=== PATIENT | female | born 1940 | race Caucasian/White ===

== ENCOUNTER 2017-01-20 17:43 | Inpatient (IN) | payer MEDICARE ==
[2017-01-20] MEDS ORDERED: Pantoprazole IV* 40 MG IV ONE (18:43)
[2017-01-20] MEDS ORDERED: Pantoprazole IV* 80 MG in NS 0.9% 250 ML* 250 ML IVPB SCH (19:00)
--- NOTE | 2017-01-20 19:03 | RAD ---
INDICATION: Sepsis. COMPARISON: Comparison is made with a prior chest x-ray study from January 16, 2017. Correlation is also made with an exam from August 28, 2012. TECHNIQUE: A portable view of the chest was obtained. FINDINGS: Cardiac and mediastinal contours appear to be within normal limits. There is peribronchial thickening and an infiltrate at the right lung base similar to the prior exam suggestive of pneumonia. IMPRESSION: RIGHT BASILAR INFILTRATE, UNCHANGED.
[2017-01-20 19:41] LABS: Hematocrit 25 % (35-47); Mean Corpuscular HGB Conc 32 g/dl (31-36); Mean Corpuscular Hemoglobin 22 pg (27-31); Mean Platelet Volume 7 um3 (7.4-10.4); Red Blood Count 3.69 10^6/ul (4.0-5.4); Red Cell Distribution Width 19 % (10.5-15)
[2017-01-20 19:42] LABS: Comments Flag Yes
[2017-01-20 19:44] LABS: Mean Corpuscular Volume 67 fL (80-97)
[2017-01-20 19:56] LABS: Albumin 3.6 g/dL (3.2-5.2); BUN/Creatinine Ratio 10.3 (8-20); EGFR African American 72.2 (>60); EGFR Non-African American 56.1 (>60); Globulin 3.3 g/dL (2-4); Total Bilirubin 0.5 mg/dL (0.2-1.0); Total Protein 6.9 g/dL (6.4-8.9)
[2017-01-20 19:59] LABS: Troponin I 0.03 ng/mL (<0.04)
[2017-01-20] MEDS ORDERED: Albuterol 2.5 MG/3 ML NEB.SOL* (0.083%) INH PRN (20:53)
[2017-01-20] MEDS ORDERED: Nicotine Inhaler* 10 MG AMP INH PRN (20:53)
[2017-01-20] MEDS ORDERED: Melatonin (NF) 3 MG TAB PO PRN (20:53)
[2017-01-20] MEDS ORDERED: Acetaminophen TAB* 325 MG PO PRN (20:53)
[2017-01-20] MEDS ORDERED: Ondansetron INJ* 2 MG/ML VIAL IV PRN (20:54)
[2017-01-20] MEDS ORDERED: Ipratropium 0.5MG/2.5ML NEB* 0.5 MG/2.5 ML NEB.SOLN INH PRN (20:57)
[2017-01-20 21:32] LABS: TSH (Thyroid Stimulating Horm) 7.25 mcIU/mL (0.34-5.60)
[2017-01-20 23:02] LABS: Ferritin 15.3 ng/mL (11-307)
[2017-01-20 23:45] LABS: Corrected Retic Count 1.4 % (0.5-1.5); Hematocrit 25 % (35-47); Hemoglobin 7.9 g/dl (12.0-16.0); Immature Retic Fraction 0.53
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
[2017-01-20 23:47] LABS: Comments Flag Yes
[2017-01-21] MEDS: NS 0.9% 1000 ML* 1,000 ML IV SCH ×2 (00:06→09:52)
[2017-01-21] MEDS: Docusate CAP* 100 MG PO SCH ×3 (00:08→20:45)
[2017-01-21] MEDS: Mirtazapine TAB* 15 MG PO SCH ×2 (00:11→20:45)
[2017-01-21] MEDS: Zolpidem TAB* 10 MG PO PRN ×2 (01:13→20:46)
[2017-01-21 05:30] LABS: Hematocrit 28 % (35-47); Hemoglobin 8.9 g/dl (12.0-16.0); Mean Corpuscular HGB Conc 32 g/dl (31-36); Mean Corpuscular Hemoglobin 23 pg (27-31); Mean Corpuscular Volume 70 fL (80-97); Mean Platelet Volume 7 um3 (7.4-10.4); Red Blood Count 3.97 10^6/ul (4.0-5.4); Red Cell Distribution Width 21 % (10.5-15); White Blood Count 8.2 10^3/ul (3.5-10.8)
[2017-01-21 05:33] LABS: Comments Flag Yes
[2017-01-21 05:37] LABS: BUN/Creatinine Ratio 10.8 (8-20); Calcium 8.9 mg/dL (8.6-10.3); EGFR African American 75.8 (>60); EGFR Non-African American 58.9 (>60); Potassium 4.2 mmol/L (3.5-5.0)
[2017-01-21 05:40] LABS: Troponin I 0.03 ng/mL (<0.04)
[2017-01-21] MEDS ORDERED: Levothyroxine TAB* 100 MCG TAB PO SCH (06:00)
[2017-01-21 06:09] LABS: Urine Bacteria Absent (Absent); Urine Bilirubin Negative (Negative); Urine Glucose Negative (Negative); Urine Nitrite Negative (Negative)
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
[2017-01-21] MEDS: Citalopram TAB* 40 MG PO SCH (07:55)
[2017-01-21] MEDS: Atorvastatin* 10 MG TAB PO SCH (07:55)
[2017-01-21] MEDS ORDERED: Perflutren Lipid Microsphere* 3 ML VIAL ONE (08:47)
[2017-01-21] MEDS ORDERED: Pantoprazole IV* 40 MG IV SCH (09:00)
--- NOTE | 2017-01-21 10:33 | ECHO ---
Patient: ODILIA HENDRICKS [facility] Rec#: [id number] : 1940 Date: 01/21/2017 Age: 76y Height: 160.02 cm / 63.0 in Weight: 83.91 kg / 184.9 lbs Sex: F BSA: 1.87 Room#: 436 Admit Date#: 01/20/2017 Type: Inpatient Referring: Eladio Martino MD Reading: Romero Mar MD Stereotyper: Kirsten Lorenzo TIMBO CC: Dinesh Bennett MD Transthoracic Echocardiogram Indication: Syncope BP: 123/50 HR: 69 Rhythm: NSR Findings History: COPD,CAD,HTN,HLD,lung cancer. Technical Comments: The study is technically limited due to the patient's history of COPD. The study is technically limited due to the patient's smoking history. Definity was used to enhance images. The study was technically limited due to the patient's inability to lay in the left lateral decubitus position. Study doen with patient supine and HOB at 75degrees. Left Ventricle: The left ventricular chamber size is decreased. Mild concentric left ventricular hypertrophy is observed. Global left ventricular wall motion and contractility are within normal limits. There is normal left ventricular systolic function. The estimated ejection fraction is 55-60%. Abnormal left ventricular diastolic function is observed. Left Atrium: The left atrium is normal in size. Right Ventricle: The right ventricular cavity size is normal. The right ventricular global systolic function is normal. Right Atrium: The right atrial cavity size is normal. Aortic Valve: The aortic valve structure is not well visualized. There is no evidence of aortic regurgitation. There is no evidence of aortic stenosis. Mitral Valve: The mitral valve leaflets are mildly thickened. There is a trace of mitral regurgitation. Tricuspid Valve: The tricuspid valve leaflets are normal. There is a physiologic tricuspid regurgitation. Unable to estimate the right ventricular systolic pressure. Pulmonic Valve: The pulmonic valve appears normal. There is no evidence of pulmonic regurgitation. There is no pulmonic stenosis. Pericardium: There is no significant pericardial effusion. A pericardial fat pad is visualized. Aorta: There is no dilatation of the ascending aorta. The aortic arch is not well visualized. There is no dilation of the aortic root. Pulmonary Artery: The main pulmonary artery is not well visualized. Venous: The inferior vena cava appears normal in size. There is an approximate 50% respiratory change in the inferior vena cava dimension. Contrast: Definity was used to optimize study. A total of 3 ml used. Intravenous contrast was used to enhance endocardial border definition. Conclusions There is normal left ventricular systolic function. The estimated ejection fraction is 55-60%. Global left ventricular wall motion and contractility are within normal limits. The left ventricular chamber size is decreased. Mild concentric left ventricular hypertrophy is observed. Abnormal left ventricular diastolic function is observed. Functionally benign heart valves. There is no prior echocadiogram available to compare with at this time. Measurements Name Value Normal Range RVIDd (AP) 2D 2.5 cm (0.9 - 2.6) RVDdMajor (2D) 2.5 cm (2.2 - 4.4) RVAW (2D) 0.9 cm (0.2 - 0.5) RAd ISD 4CH 3.8 cm (3.4 - 4.9) RA (A4C)W 2.9 cm (2.9 - 4.6) IVSd (2D) 1.3 cm (0.6 - 1) LVPWd (2D) 1.1 cm (0.6 - 1) LVIDd (2D) 3.4 cm (3.6 - 5.4) LVIDs (2D) 2.6 cm - LV FS (2D) 25 % (25 - 45) Aortic Annulus 1.8 cm (1.4 - 2.6) Ao root diameter (2D) 3.3 cm (2.1 - 3.5) Ascending Ao 2.9 cm (2.1 - 3.4) LA dimension (AP) 2D 2.9 cm (2.3 - 3.8) LAd ISD 4CH 4 cm (2.9 - 5.3) LA ISD 4CH W 3.1 cm (2.5 - 4.5) Name Value Normal Range LA ESV SP 4CH (A/L) 18.32 ml - LA ESV SP 2CH (A/L) 29.3 ml - LA ESV BP (A/L) 25.35 ml - LA ESV SP 4CH (MOD) 17.26 ml - LA ESV SP 2CH (MOD) 27.93 ml - Name Value Normal Range MV E-wave Vmax 0.8 m/sec - MV deceleration time 103 msec - MV A-wave Vmax 1.1 m/sec - MV E:A ratio 0.68 ratio - LV septal e' Vmax 0.07 m/sec - LV lateral e' Vmax 0.1 m/sec - LV E:e' septal ratio 11.42 ratio - LV E:e' lateral ratio 8 ratio - Name Value Normal Range AV Vmax 1.4 m/sec - AV VTI 28 cm - AV peak gradient 7.96 mmHg - AV mean gradient 3.07 mmHg - LVOT Vmax 1.1 m/sec - LVOT VTI 23 cm - LVOT peak gradient 5.12 mmHg - LVOT mean gradient 2 mmHg - Name Value Normal Range IVC diameter 1.6 cm - Name Value Normal Range PV Vmax 0.2 m/sec - PV peak gradient 0.2 mmHg -
[2017-01-21] MEDS ORDERED: Iodixanol* (CONTRAST) 320 MG/ML 100 ML SDV IV ONE (11:42)
[2017-01-21] MEDS ORDERED: Albuterol/Ipratropium NEB.SOL* Albuterol 2.5 MG/Ipratropium 0.5 MG 3 ML INH ONE (11:47)
[2017-01-21] MEDS ORDERED: Albuterol/Ipratropium NEB.SOL* Albuterol 2.5 MG/Ipratropium 0.5 MG 3 ML INH SCH (12:00)
[2017-01-21 12:26] LABS: Free T4 0.89 ng/dL (0.61-1.12)
[2017-01-21 12:30] LABS: Total T3 0.64 ng/mL (0.87-1.78)
--- NOTE | 2017-01-21 13:27 | RAD ---
HISTORY: Syncope and dizziness COMPARISONS: Head CT dated January 16, 2017 TECHNIQUE: Multiple contiguous axial CT scans were obtained of the head before and after and of the neck After the administration of nonionic intravenous contrast timed to the systemic arterial phase of contrast enhancement. Coronal and sagittal multiplanar reformations are submitted for review. Multiple 3-D maximum intensity projection reconstructions are also submitted for review. FINDINGS: CTA NECK: AORTIC ARCH: There is a normal three-vessel branching pattern of the aortic arch. There is no ostial or proximal stenosis of the cephalic great vessels. RIGHT VERTEBRAL ARTERY: The right vertebral artery is patent along its course, without stenosis. LEFT VERTEBRAL ARTERY: The left vertebral artery is patent along its course, without stenosis. DOMINANCE: The vertebral arteries are codominant. RIGHT COMMON CAROTID ARTERY: The right common carotid artery is patent. The right carotid bifurcation occurs at C3-C4 RIGHT INTERNAL CAROTID ARTERY: There is atheromatous disease of the right carotid bifurcation, without right internal carotid artery stenosis by NASCET criteria. RIGHT EXTERNAL CAROTID ARTERY: The right external carotid artery is unremarkable. LEFT COMMON CAROTID ARTERY: The left common carotid artery is patent. The left carotid bifurcation occurs at C3-C4 LEFT INTERNAL CAROTID ARTERY: There is atheromatous disease of the left carotid bifurcation, without left internal carotid artery stenosis by NASCET criteria. LEFT EXTERNAL CAROTID ARTERY: The left external carotid artery is unremarkable. VENOUS CIRCULATION: The venous system is unremarkable. SALIVARY GLANDS: The parotid glands, submandibular glands, sublingual glands are normal. NASAL CAVITY/NASOPHARYNX: The nasal cavity and nasopharynx are normal. ORAL CAVITY/OROPHARYNX: The oral cavity and oropharynx are unremarkable. LARYNGEAL APPARATUS/HYPOPHARYNX: The laryngeal apparatus and hypopharynx are normal. UPPER AIRWAY/UPPER ESOPHAGUS: The visualized upper airway and esophagus are normal. LUNG APICES: There is a spiculated mass of the left upper lobe measuring 2.2 cm. THYROID GLAND: The thyroid gland is normal. LYMPH NODES: There is no lymphadenopathy by size criteria. BONES AND SOFT TISSUES: Degenerative changes are noted of the spine CTA HEAD: INTRACRANIAL CIRCULATION: There is no aneurysm, vascular malformation, occlusion, or stenosis of the visualized intracranial circulation. The anterior communicating artery complex is clear. Bilateral posterior communicating arteries are identified. VENOUS CIRCULATION: The superior orbital veins are dilated bilaterally. There cavernous sinuses appear grossly normal. PERFUSION: There is no obvious parenchymal perfusion deficit. HEMORRHAGE/INFARCT: There is no hemorrhage or acute infarct. MASSES/SHIFT: There is no mass or shift. EXTRA-AXIAL SPACES: There are no extra-axial fluid collections. The questionable tentorial lesion noted on the previous CT is not well-visualized on the current examination. SULCI AND VENTRICLES: The sulci and ventricles are normal in size and position for the patient's stated age. CEREBRUM: There are no focal parenchymal abnormalities. BRAINSTEM: There are no focal parenchymal abnormalities. CEREBELLUM: There are no focal parenchymal abnormalities. PARANASAL SINUSES: There is mucosal thickening with an air-fluid level of the sphenoid sinus. This ORBITS: There is enlargement of the superior orbital veins bilaterally. BONES AND SOFT TISSUE: No bone or soft tissue abnormalities are noted. OTHER: There is no abnormal enhancement. IMPRESSION: 1. THERE IS 2.2 CM SPICULATED MASS OF THE LEFT UPPER LOBE, CONCERNING FOR NEOPLASM. RECOMMEND CONSIDERATION OF FURTHER EVALUATION WITH TISSUE SAMPLING AND/OR PET/CT. 2. ATHEROMATOUS DISEASE, WITHOUT INTERNAL CAROTID ARTERY STENOSIS BY NASCET CRITERIA. 3. THERE IS ENLARGEMENT OF THE SUPERIOR ORBITAL VEINS BILATERALLY SUGGESTIVE OF VENOUS HYPERTENSION. THIS MAY BE SECONDARY TO AN INDIRECT CC FISTULA. 4. NO ANEURYSM, VASCULAR MALFORMATION, OCCLUSION, OR STENOSIS OF THE VISUALIZED INTRACRANIAL CIRCULATION. CPT II Codes: 3100F
[2017-01-21] MEDS: Albuterol/Ipratropium NEB.SOL* Albuterol 2.5 MG/Ipratropium 0.5 MG 3 ML INH SCH ×2 (13:52→19:32)
[2017-01-21] MEDS ORDERED: Levothyroxine INJ* 100 MCG/5 ML VIAL IV ONE (18:04)
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
[2017-01-22] MEDS: Albuterol/Ipratropium NEB.SOL* Albuterol 2.5 MG/Ipratropium 0.5 MG 3 ML INH SCH ×4 (00:17→19:41)
[2017-01-22] MEDS: NS 0.9% 1000 ML* 1,000 ML IV SCH (01:15)
[2017-01-22 05:03] LABS: Hematocrit 26 % (35-47); Mean Corpuscular HGB Conc 31 g/dl (31-36); Mean Corpuscular Hemoglobin 22 pg (27-31); Mean Platelet Volume 7 um3 (7.4-10.4); Red Blood Count 3.68 10^6/ul (4.0-5.4); Red Cell Distribution Width 20 % (10.5-15)
[2017-01-22 05:04] LABS: Comments Flag Yes
[2017-01-22 05:05] LABS: Mean Corpuscular Volume 71 fL (80-97)
[2017-01-22] MEDS: Omeprazole CAP* 20 MG PO SCH (05:11)
[2017-01-22] MEDS: Levothyroxine TAB* 125 MCG TAB PO SCH (05:12)
[2017-01-22 05:22] LABS: BUN/Creatinine Ratio 8.1 (8-20); Calcium 8.7 mg/dL (8.6-10.3); EGFR Non-African American 64.5 (>60)
[2017-01-22] MEDS: Atorvastatin* 10 MG TAB PO SCH (08:14)
[2017-01-22] MEDS: Citalopram TAB* 40 MG PO SCH (08:14)
[2017-01-22] MEDS: Ferrous Sulfate TAB* 325 MG PO SCH (08:15)
[2017-01-22] MEDS: Docusate CAP* 100 MG PO SCH ×2 (08:15→19:32)
[2017-01-22] MEDS: Azithromycin TAB* 250 MG PO SCH (19:32)
[2017-01-22] MEDS: Mirtazapine TAB* 15 MG PO SCH ×2 (19:33→19:35)
[2017-01-22] MEDS: Zolpidem TAB* 10 MG PO PRN (19:50)
[2017-01-23] MEDS: Albuterol/Ipratropium NEB.SOL* Albuterol 2.5 MG/Ipratropium 0.5 MG 3 ML INH SCH ×4 (01:16→19:21)
[2017-01-23] MEDS: Levothyroxine TAB* 125 MCG TAB PO SCH (05:40)
[2017-01-23] MEDS: Omeprazole CAP* 20 MG PO SCH (05:40)
[2017-01-23] MEDS: Citalopram TAB* 40 MG PO SCH (08:59)
[2017-01-23] MEDS: Docusate CAP* 100 MG PO SCH ×2 (09:00→21:07)
[2017-01-23] MEDS: Ferrous Sulfate TAB* 325 MG PO SCH (09:00)
[2017-01-23] MEDS: Azithromycin TAB* 250 MG PO SCH (09:00)
[2017-01-23] MEDS: Atorvastatin* 10 MG TAB PO SCH (09:00)
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
[2017-01-23] MEDS: Mirtazapine TAB* 15 MG PO SCH (21:08)
[2017-01-23] MEDS: Zolpidem TAB* 10 MG PO PRN (21:11)
[2017-01-24] MEDS: Albuterol/Ipratropium NEB.SOL* Albuterol 2.5 MG/Ipratropium 0.5 MG 3 ML INH SCH ×4 (00:52→20:29)
[2017-01-24] MEDS: Levothyroxine TAB* 125 MCG TAB PO SCH (05:10)
[2017-01-24] MEDS: Omeprazole CAP* 20 MG PO SCH (05:10)
[2017-01-24 05:30] LABS: Hematocrit 28 % (35-47); Mean Corpuscular HGB Conc 32 g/dl (31-36); Mean Corpuscular Hemoglobin 22 pg (27-31); Red Blood Count 4.06 10^6/ul (4.0-5.4); Red Cell Distribution Width 21 % (10.5-15); White Blood Count 8.2 10^3/ul (3.5-10.8)
[2017-01-24 05:31] LABS: Add Diff/Slide Review? Slide Review Added; Comments Flag Yes; Mean Corpuscular Volume 70 fL (80-97)
[2017-01-24 06:00] LABS: BUN/Creatinine Ratio 7.3 (8-20); EGFR African American 73.1 (>60); EGFR Non-African American 56.8 (>60); Potassium 4.5 mmol/L (3.5-5.0)
[2017-01-24] MEDS: Azithromycin TAB* 250 MG PO SCH (08:34)
[2017-01-24] MEDS: Atorvastatin* 10 MG TAB PO SCH (08:34)
[2017-01-24] MEDS: Citalopram TAB* 40 MG PO SCH (08:34)
[2017-01-24] MEDS: Ferrous Sulfate TAB* 325 MG PO SCH (08:34)
[2017-01-24] MEDS: Docusate CAP* 100 MG PO SCH ×2 (08:34→20:23)
[2017-01-24] MEDS: ceFUROXime TAB(*) 250 MG PO SCH ×2 (11:11→20:22)
[2017-01-24] MEDS: Zolpidem TAB* 10 MG PO PRN (20:22)
[2017-01-24] MEDS: Mirtazapine TAB* 15 MG PO SCH (20:22)
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
[2017-01-25] MEDS: Albuterol/Ipratropium NEB.SOL* Albuterol 2.5 MG/Ipratropium 0.5 MG 3 ML INH SCH ×2 (00:47→08:28)
[2017-01-25 05:25] LABS: Comments Flag Yes; Hematocrit 26 % (35-47); Hemoglobin 8.4 g/dl (12.0-16.0); Mean Corpuscular HGB Conc 32 g/dl (31-36); Mean Corpuscular Hemoglobin 22 pg (27-31); Mean Platelet Volume 7 um3 (7.4-10.4); Red Blood Count 3.75 10^6/ul (4.0-5.4); Red Cell Distribution Width 22 % (10.5-15); White Blood Count 5.4 10^3/ul (3.5-10.8)
[2017-01-25 05:26] LABS: Mean Corpuscular Volume 70 fL (80-97)
[2017-01-25 05:26] LABS: Venous Bicarbonate HCO3 30.2 mmol/L (24-28)
[2017-01-25] MEDS: Omeprazole CAP* 20 MG PO SCH (05:26)
[2017-01-25] MEDS: Levothyroxine TAB* 125 MCG TAB PO SCH (05:26)
[2017-01-25 05:40] LABS: BUN/Creatinine Ratio 7.4 (8-20); Calcium 8.9 mg/dL (8.6-10.3); EGFR Non-African American 57.5 (>60); Potassium 3.9 mmol/L (3.5-5.0)
[2017-01-25 08:15] VITALS: BP 137/59
[2017-01-25] MEDS: Citalopram TAB* 40 MG PO SCH (09:26)
[2017-01-25] MEDS: Azithromycin TAB* 250 MG PO SCH (09:26)
[2017-01-25] MEDS: Ferrous Sulfate TAB* 325 MG PO SCH (09:26)
[2017-01-25] MEDS: ceFUROXime TAB(*) 250 MG PO SCH (09:26)
[2017-01-25] MEDS: Atorvastatin* 10 MG TAB PO SCH (09:26)
[2017-01-25] MEDS: Docusate CAP* 100 MG PO SCH (10:01)
--- NOTE | 2017-01-25 18:18 | PN ---
Hospitalist Progress Note . HOSPITALIST DISCHARGE NOTE: See dc instructions and summary by me. Patient stable for dc dc instructions reviewed with the patient at the bedside. DC patient home today.
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
== END 2017-01-25 11:33 | disposition home or self-care (01) | DRG 811 ==
LOC: ED 17:43 → MEDTELE 20:49 → OBSVTOIN 01-21 11:46
PROVIDERS: ADMIT Hospitalist; ATTEND Internal Medicine
PROC: 30233N1 Transfusion of Nonautologous Red Blood Cells into Peripheral Vein, Percutaneous Approach (ICD-10-PCS; principal; 2017-01-20)
DX: D50.9 Iron deficiency anemia, unspecified (principal); J14 Pneumonia due to Hemophilus influenzae; J10.08 Influenza due to other identified influenza virus with other specified pneumonia; C34.90 Malignant neoplasm of unspecified part of unspecified bronchus or lung; I11.9 Hypertensive heart disease without heart failure; J44.1 Chronic obstructive pulmonary disease with (acute) exacerbation; E86.0 Dehydration; Q27.30 Arteriovenous malformation, site unspecified; B99.8 Other infectious disease; F17.210 Nicotine dependence, cigarettes, uncomplicated; E78.5 Hyperlipidemia, unspecified; F32.9 Major depressive disorder, single episode, unspecified; M25.512 Pain in left shoulder; M25.511 Pain in right shoulder; I25.10 Atherosclerotic heart disease of native coronary artery without angina pectoris; Z79.82 Long term (current) use of aspirin; Z79.899 Other long term (current) drug therapy; Z91.040 Latex allergy status; Z80.42 Family history of malignant neoplasm of prostate
CPT/HCPCS: 36415; 70496; 70498; 71010; 80048; 80053; 81003; 81015; 82272; 82607; 82728; 82746; 82803; 83010; 83540; 83550; 83605; 83615; 83921; 84439; 84443; 84466; 84479; 84484; 85014; 85018; 85025; 85027; 85045; 85610; 85730; 86141; 86850; 86900; 86901; 86922; 87040; 87070; 87086; 87205; 93306; 94640; 94760; 99406; A9270-GY; C8929; G8987-GO-CH; G8988-GO-CH; G8989-GO-CH; J2405; P9040; Q9967

== ENCOUNTER 2020-01-18 18:32 | Observation (INO) ==
[2020-01-18] MEDS ORDERED: NS 0.9% 1000 ml BAG 1,000 ML IV ONE (19:00)
[2020-01-18] MEDS ORDERED: Prochlorperazine 5 mg/ml 2 ml VIAL (10 mg) IV ONE (19:02)
[2020-01-18 19:45] LABS: Troponin I 0.01 ng/mL (<0.03)
[2020-01-18 19:48] LABS: ALT 9 U/L (7-52); AST 13 U/L (13-39); Albumin 3.9 g/dL (3.2-5.2); Albumin/Globulin Ratio 1.1 (1-3); Alkaline Phosphatase 106 U/L (34-104); Anion Gap 8 mmol/L (2-11); BUN/Creatinine Ratio 11.9 (8-20); Blood Urea Nitrogen 13 mg/dL (6-24); CO2 Carbon Dioxide 26 mmol/L (22-32); Calcium 9.5 mg/dL (8.6-10.3); Chloride 99 mmol/L (101-111); EGFR African American 58.9 (>60); EGFR Non-African American 48.7 (>60); Globulin 3.4 g/dL (2-4); Glucose 122 mg/dL (70-100); Magnesium 2.3 mg/dL (1.9-2.7); Potassium 4.5 mmol/L (3.5-5.0); Sodium 133 mmol/L (135-145); Total Protein 7.3 g/dL (6.4-8.9)
[2020-01-18 19:59] LABS: Alcohol, S < 10 mg/dL (<10)
[2020-01-18 20:14] LABS: TSH Ultra Thyroid Stim Horm 0.94 mcIU/mL (0.34-5.60)
[2020-01-18 20:21] LABS: Microcytosis 2+
[2020-01-18 20:22] LABS: ABS Eosinophils 0.1 10^3/ul (0-0.6); ABS Lymphocytes 0.4 10^3/ul (1.0-4.8); ABS Monocytes 0.5 10^3/ul (0-0.8); ABS Neutrophils 6.2 10^3/ul (1.5-7.7); Eosinophil % 1.6 %; Hematocrit 26 % (35-47); Hemoglobin 8.4 g/dL (12.0-16.0); Lymphocyte % 5.7 %; Mean Corpuscular HGB Conc 33 g/dL (31-36); Mean Corpuscular Hemoglobin 23 pg (27-31); Mean Corpuscular Volume 71 fL (80-97); Mean Platelet Volume 7.2 fL (7.4-10.4); Platelet Count 313 10^3/uL (150-450); Polychromasia 1+; Red Blood Count 3.63 10^6 /uL (3.70-4.87); Red Cell Distribution Width 19 % (10-15); White Blood Count 7.3 10^3/uL (3.5-10.8)
[2020-01-18 22:21] LABS: Urine Appearance Cloudy; Urine Bilirubin Negative (Negative); Urine Blood Negative (Negative); Urine Color Yellow; Urine Glucose Negative (Negative); Urine Ketones Negative (Negative); Urine Nitrite Negative (Negative); Urine Protein Negative (Negative); Urine Specific Gravity 1.008 (1.010-1.030); Urine Urobilinogen Negative (Negative)
[2020-01-18 22:30] LABS: Urine Bacteria 1+ (Absent); Urine Red Blood Cell 1+(3-5/hpf) (Absent); Urine Squamous Epithelial Cell Present (Absent); Urine White Blood Cell 2+(11-20/hpf) (Absent)
[2020-01-18] MEDS ORDERED: Iodixanol (CONTRAST) 320 MG/ML 100 ML SDV IV ONE (22:49)
[2020-01-19] MEDS ORDERED: cefTRIAXone 1 gm/50 mL NS BAG 1 GM/50 ML BAG IV ONE (00:09)
[2020-01-19] MEDS ORDERED: NS 0.9% 1000 ml BAG 1,000 ML IV SCH (01:00)
[2020-01-19] MEDS ORDERED: Enoxaparin 40 MG/0.4 ML SYR SUBCUT SCH (02:00)
[2020-01-19 07:26] LABS: Anion Gap 5 mmol/L (2-11); BUN/Creatinine Ratio 10.7 (8-20); Blood Urea Nitrogen 11 mg/dL (6-24); CO2 Carbon Dioxide 25 mmol/L (22-32); Calcium 8.9 mg/dL (8.6-10.3); Chloride 105 mmol/L (101-111); Cholesterol 133 mg/dL; EGFR African American 62.9 (>60); Glucose 91 mg/dL (70-100); HDL Cholesterol 33.5 mg/dL; LDL Cholesterol 77 mg/dL; Potassium 4.3 mmol/L (3.5-5.0); Sodium 135 mmol/L (135-145); Triglycerides 115 mg/dL
[2020-01-19 07:28] LABS: % Iron Saturation 5 % (15-55); Iron < 20 ug/dL (50-212); Total Iron Binding Capacity 405 mcg/dL (250-450); Transferrin 289 mg/dL (203-362); Unsaturated Iron Binding < 390 ug/dL
[2020-01-19 07:41] LABS: ABS Eosinophils 0.1 10^3/ul (0-0.6); ABS Lymphocytes 0.5 10^3/ul (1.0-4.8); ABS Monocytes 0.4 10^3/ul (0-0.8); ABS Neutrophils 4.4 10^3/ul (1.5-7.7); Eosinophil % 2.7 %; Hematocrit 25 % (35-47); Hemoglobin 7.9 g/dL (12.0-16.0); Lymphocyte % 9.8 %; Mean Corpuscular HGB Conc 32 g/dL (31-36); Mean Corpuscular Hemoglobin 23 pg (27-31); Mean Corpuscular Volume 72 fL (80-97); Mean Platelet Volume 7.4 fL (7.4-10.4); Platelet Count 293 10^3/uL (150-450); Red Blood Count 3.51 10^6 /uL (3.70-4.87); Red Cell Distribution Width 19 % (10-15); White Blood Count 5.6 10^3/uL (3.5-10.8)
[2020-01-19 07:47] LABS: Ferritin 9.8 ng/mL (11-307)
[2020-01-19 11:58] VITALS: BP 139/59
[2020-01-22] MEDS ORDERED: Scopolamine PATCH Remove NOTE PATCH OFF SCH (08:00)
== END 2020-01-19 14:31 | disposition home or self-care (01) ==
LOC: MEDTELE 18:32 → ED 18:32
PROVIDERS: ADMIT Internal Medicine; ATTEND Internal Medicine

== ENCOUNTER 2020-06-10 14:56 | Inpatient (IN) ==
[2020-06-10 17:22] LABS: ABS Eosinophils 0.1 10^3/ul (0-0.6); ABS Lymphocytes 0.6 10^3/ul (1.0-4.8); ABS Neutrophils 12.4 10^3/ul (1.5-7.7); Eosinophil % 0.5 %; Hematocrit 31 % (35-47); Hemoglobin 9.3 g/dL (12.0-16.0); Lymphocyte % 4.2 %; Mean Corpuscular HGB Conc 30 g/dL (31-36); Mean Corpuscular Hemoglobin 20 pg (27-31); Mean Corpuscular Volume 66 fL (80-97); Mean Platelet Volume 6.8 fL (7.4-10.4); Platelet Count 546 10^3/uL (150-450); Red Blood Count 4.61 10^6 /uL (3.70-4.87); Red Cell Distribution Width 22 % (10-15); White Blood Count 14.1 10^3/uL (3.5-10.8)
[2020-06-10 17:24] LABS: ALT 12 U/L (7-52); AST 16 U/L (13-39); Albumin 3.5 g/dL (3.2-5.2); Alkaline Phosphatase 171 U/L (34-104); Anion Gap 5 mmol/L (2-11); BUN/Creatinine Ratio 21.3 (8-20); Blood Urea Nitrogen 19 mg/dL (6-24); CO2 Carbon Dioxide 32 mmol/L (22-32); Calcium 10.9 mg/dL (8.6-10.3); Chloride 96 mmol/L (101-111); EGFR African American 74.4 (>60); EGFR Non-African American 61.5 (>60); Globulin 3.6 g/dL (2-4); Glucose 104 mg/dL (70-100); Magnesium 2.2 mg/dL (1.9-2.7); Potassium 4.3 mmol/L (3.5-5.0); Sodium 133 mmol/L (135-145); Total Protein 7.1 g/dL (6.4-8.9)
[2020-06-10 17:32] LABS: Troponin I 0.05 ng/mL (<0.03)
[2020-06-10] MEDS ORDERED: Albuterol HFA INHALER 8 gm MDI INH ONE (17:57)
[2020-06-10] MEDS ORDERED: Morphine 4 MG/ML VIAL (1 ml) IV ONE (17:58)
[2020-06-10 18:01] LABS: TSH Ultra Thyroid Stim Horm 4.98 mcIU/mL (0.34-5.60)
[2020-06-10] MEDS: Iohexol 300 (CONTRAST) 10 ML SDV IV ONE ×2 (18:04→18:11)
[2020-06-10 18:06] LABS: Lipase 10 U/L (11.0-82.0)
[2020-06-10] MEDS ORDERED: Iohexol 350 (CONTRAST) 500 ML MDV IV ONE (18:17)
[2020-06-10] MEDS ORDERED: methylPREDNISolone 125 mg 2 ML VIAL IV ONE (20:01)
[2020-06-10] MEDS ORDERED: Albuterol/Ipratropium NEB.SOL (2.5/0.5 MG) 3 ML NEB.SOLN INH PRN (20:16)
[2020-06-10 21:32] LABS: Troponin I 0.05 ng/mL (<0.03)
[2020-06-10 23:46] LABS: Troponin I 0.04 ng/mL (<0.03)
[2020-06-11] MEDS: cefTRIAXone 1 gm/50 mL NS BAG 1 GM/50 ML BAG IVPB SCH ×2 (00:18→22:09)
[2020-06-11] MEDS: Heparin 5000 UNITS/ML 1 mL VIAL SUBCUT SCH ×4 (00:22→22:05)
[2020-06-11 06:54] LABS: Urine Appearance Cloudy; Urine Bilirubin Negative (Negative); Urine Blood Negative (Negative); Urine Color Yellow; Urine Glucose Negative (Negative); Urine Ketones Negative (Negative); Urine Nitrite Negative (Negative); Urine Protein Negative (Negative); Urine Specific Gravity 1.038 (1.002-1.030); Urine Urobilinogen Positive (Negative)
[2020-06-11 06:59] LABS: Urine Bacteria Absent (Absent); Urine Red Blood Cell Trace(0-2/hpf) (Absent); Urine Squamous Epithelial Cell Present (Absent); Urine White Blood Cell Trace(0-5/hpf) (Absent)
[2020-06-11] MEDS ORDERED: Perflutren Lipid Microsphere 3 ML VIAL ONE (07:39)
[2020-06-11 09:00] LABS: ABS Lymphocytes 0.2 10^3/ul (1.0-4.8); ABS Monocytes 0.2 10^3/ul (0-0.8); ABS Neutrophils 8.3 10^3/ul (1.5-7.7); Hematocrit 31 % (35-47); Hemoglobin 9.4 g/dL (12.0-16.0); Lymphocyte % 2.7 %; Mean Corpuscular HGB Conc 31 g/dL (31-36); Mean Corpuscular Hemoglobin 21 pg (27-31); Mean Corpuscular Volume 66 fL (80-97); Mean Platelet Volume 6.9 fL (7.4-10.4); Platelet Count 504 10^3/uL (150-450); Red Cell Distribution Width 22 % (10-15); White Blood Count 8.7 10^3/uL (3.5-10.8)
[2020-06-11 09:15] LABS: Albumin 3.4 g/dL (3.2-5.2); Albumin/Globulin Ratio 0.9 (1-3); BUN/Creatinine Ratio 25.6 (8-20); Calcium 10.7 mg/dL (8.6-10.3); EGFR African American 73.5 (>60); EGFR Non-African American 60.7 (>60); Globulin 3.6 g/dL (2-4); Potassium 4.6 mmol/L (3.5-5.0); Total Bilirubin 0.4 mg/dL (0.2-1.0)
[2020-06-11] MEDS: NS 0.9% 1000 ml BAG 1,000 ML IV SCH (11:16)
[2020-06-11] MEDS ORDERED: Gadoteridol (CONTRAST) 279.3 MG/ML 10 ML IV ONE (12:49)
[2020-06-11] MEDS: Albuterol/Ipratropium NEB.SOL (2.5/0.5 MG) 3 ML NEB.SOLN INH SCH ×2 (13:10→19:17)
[2020-06-11] MEDS: Morphine ORAL CONCENTRATE 5 MG/0.25 ML ORAL.SYRIN PO PRN ×3 (17:27→22:04)
[2020-06-11] MEDS ORDERED: Prochlorperazine 5 mg/ml 2 ml VIAL (10 mg) IV PRN (22:52)
[2020-06-12] MEDS: Albuterol/Ipratropium NEB.SOL (2.5/0.5 MG) 3 ML NEB.SOLN INH SCH ×4 (02:00→20:34)
[2020-06-12] MEDS: Heparin 5000 UNITS/ML 1 mL VIAL SUBCUT SCH ×3 (05:16→21:12)
[2020-06-12 06:48] LABS: BUN/Creatinine Ratio 29.8 (8-20); EGFR African American 79.6 (>60); EGFR Non-African American 65.7 (>60); Potassium 3.9 mmol/L (3.5-5.0)
[2020-06-12 06:55] LABS: ABS Lymphocytes 0.7 10^3/ul (1.0-4.8); ABS Monocytes 0.8 10^3/ul (0-0.8); ABS Neutrophils 11.3 10^3/ul (1.5-7.7); Eosinophil % 0.1 %; Hematocrit 28 % (35-47); Hemoglobin 8.5 g/dL (12.0-16.0); Lymphocyte % 5.8 %; Mean Corpuscular HGB Conc 31 g/dL (31-36); Mean Corpuscular Hemoglobin 20 pg (27-31); Mean Corpuscular Volume 65 fL (80-97); Mean Platelet Volume 6.7 fL (7.4-10.4); Platelet Count 482 10^3/uL (150-450); Red Blood Count 4.22 10^6 /uL (3.70-4.87); Red Cell Distribution Width 22 % (10-15); White Blood Count 12.8 10^3/uL (3.5-10.8)
[2020-06-12] MEDS: NS 0.9% 1000 ml BAG 1,000 ML IV SCH (08:55)
[2020-06-12] MEDS: Morphine ORAL CONCENTRATE 5 MG/0.25 ML ORAL.SYRIN PO PRN (17:21)
[2020-06-12] MEDS: cefTRIAXone 1 gm/50 mL NS BAG 1 GM/50 ML BAG IVPB SCH (22:57)
[2020-06-13] MEDS: Albuterol/Ipratropium NEB.SOL (2.5/0.5 MG) 3 ML NEB.SOLN INH SCH ×2 (00:23→08:57)
[2020-06-13] MEDS: NS 0.9% 1000 ml BAG 1,000 ML IV SCH (05:23)
[2020-06-13] MEDS: Heparin 5000 UNITS/ML 1 mL VIAL SUBCUT SCH (05:23)
[2020-06-13 22:07] VITALS: BP 136/62
== END 2020-06-13 11:05 | disposition hospice, home (50) | DRG 181 ==
LOC: ED 14:56 → MEDTELE 19:51
PROVIDERS: ADMIT Internal Medicine; ATTEND Hospitalist